=== PATIENT | female | born 1985 | race American Indian/Alaskan Native ===

== ENCOUNTER 2019-02-17 09:00 | Inpatient (IN) | payer MEDICAID ==
[2019-02-17] MEDS ORDERED: ONDANSETRON 4 MG/2 ML INJ IV PRN (10:30)
[2019-02-17] MEDS ORDERED: TERBUTALINE 1 MG/1 ML INJ IVP PRN (10:30)
[2019-02-17] MEDS ORDERED: ePHEDrine SULFATE 50 MG/1 ML INJ IV PRN (10:30)
[2019-02-17] MEDS ORDERED: BUTORPHANOL 2 MG/1 ML INJ IV PRN (10:30)
[2019-02-17] MEDS ORDERED: PROMETHAZINE 25 MG TAB PO PRN (10:30)
[2019-02-17] MEDS ORDERED: MINERAL OIL 30 ML ORAL LIQD PO PRN (10:30)
[2019-02-17] MEDS ORDERED: TERBUTALINE 1 MG/1 ML INJ SUB-Q PRN (10:30)
[2019-02-17] MEDS ORDERED: miSOPROStol 25 MCG TAB VG SCH (10:30)
[2019-02-17] MEDS ORDERED: LIDOCAINE (2%) 20 MG/1 ML VIAL 20 ML MDV INFILTRATI NR (10:30)
[2019-02-17] MEDS ORDERED: NALOXONE 0.4 MG/1 ML INJ IV PRN (10:30)
[2019-02-17] MEDS ORDERED: OXYTOCIN 20 UNIT/1000ML DRIP 20 UNITS/1,000 ML BAG IV SCH (11:00)
[2019-02-17] MEDS ORDERED: OXYTOCIN DRIP 30 UNITS/500 ML BAG IV SCH (11:00)
[2019-02-17] MEDS ORDERED: AMPICILLIN/NS 2 GM/100 ML 2 GM/100 ML BAG IV ONE (11:00)
[2019-02-17] MEDS: OXYTOCIN DRIP 30 UNITS/500 ML BAG IV SCH ×2 (11:28→22:00)
[2019-02-17] MEDS: LACTATED RINGERS 1,000 ML IV SCH ×2 (11:28→16:58)
[2019-02-17 12:00] LABS: Hematocrit 32.3 % (30.3-42.9); Hemoglobin 11.4 gm/dl (10.1-14.3); Mean Corpuscular HGB Conc 35 % (30-34); Mean Corpuscular Volume 88 fl (79-97); Platelet Count 236 K/mm3 (140-440); Red Blood Count 3.69 M/mm3 (3.65-5.03); Red Cell Distribution Width 15.5 % (13.2-15.2)
--- NOTE | 2019-02-17 12:43 | History and Physical Report ---
History of Present Illness Date of examination: 02/17/19 Date of admission: 02/17/19 Chief complaint: Here for induction History of present illness: Pt is a 33 yo at 41.1 weeks EGA who presents for IOL for post-dates gestation. She reports leaking fluid, positive movement, and denies vaginal bleeding. She has received care with [facility]. course has been complicated by HgbAC without FOB testing, glucose intolerance with normal 3hr GTT, and anemia. She is GBS positive. 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 () Family/Genetic History: diabetes, hypertension, stroke, cancer (aunt breast cancer age 49) Social history: no significant social history - Obstetrical History Expected Date of Delivery: 02/09/19 Actual Gestation: 41 Week(s) 1 Day(s) : 3 Para: 0 Hx # Term Pregnancies: 0 Number of Pregnancies: 0 Spontaneous Abortions: 1 Induced : 1 Number of Living Children: 0 Medications and Allergies Allergies Allergy/AdvReac Type Severity Reaction Status Date / Time No Known Allergies Allergy Verified 02/17/19 10:10 Active Meds: Active Medications Butorphanol Tartrate (Stadol) 2 mg IV Q2H PRN PRN Reason: Pain , Severe (7-10) Ephedrine Sulfate (Ephedrine Sulfate) 10 mg IV Q2M PRN PRN Reason: Hypotension Fentanyl (Sublimaze) 100 mcg IV Q2H PRN PRN Reason: Labor Pain Oxytocin/Sodium Chloride (Pitocin/Ns 20 Unit/1000ml Drip) 20 units in 1,000 mls @ 125 mls/hr IV DIRECT DIPIKA Oxytocin/Sodium Chloride (Pitocin/Ns 30 Unit/500ml) 30 units in 500 mls @ 1 mls/hr IV TITR DIPIKA; Protocol Last Titration: 02/17/19 12:32 Dose: 2 milliunits/min, 2 mls/hr Documented by: Oxytocin/Sodium Chloride (Pitocin/Ns 30 Unit/500ml) 30 units in 500 mls @ 2 mls/hr IV TITR DIPIKA; Protocol Lactated Ringer's (Lactated Ringers) 1,000 mls @ 125 mls/hr IV DIRECT DIPIKA Last Admin: 02/17/19 11:28 Dose: 125 mls/hr Documented by: Ampicillin Sodium (Ampicillin/Ns 1 Gm/50 Ml) 1 gm in 50 mls @ 100 mls/hr IV Q4H DIPIKA; Protocol Lidocaine (Xylocaine 2%) 20 ml INFILTRATI ONCE NR Stop: 02/18/19 10:29 Mineral Oil (Mineral Oil) 30 ml PO QHS PRN PRN Reason: Constipation Misoprostol (Cytotec) 25 mcg VG ONCE DIPIKA Stop: 02/17/19 16:00 Naloxone HCl (Naloxone) 0.1 mg IV Q2MIN PRN PRN Reason: Res Rate </= 8 or 02 SAT < 92% Ondansetron HCl (Zofran) 4 mg IV Q8H PRN PRN Reason: Nausea And Vomiting Promethazine HCl (Phenergan) 25 mg PO Q6H PRN PRN Reason: Nausea And Vomiting Terbutaline Sulfate (Brethine) 0.25 mg SUB-Q ONCE PRN PRN Reason: Hyperstimulation/Hypertonicity Terbutaline Sulfate (Brethine) 0.25 mg IVP ONCE PRN PRN Reason: Hyperstimulation/Hypertonicity Review of Systems All systems: negative Genitourinary: vaginal discharge, leakage of fluid, contractions, no vaginal bleeding - Vital Signs Vital signs: Vital Signs Pulse BP 105 H 126/76 02/17/19 09:49 02/17/19 09:49 Temp Pulse Resp BP Pulse Ox 98.0 F 100 H 16 126/76 02/17/19 09:53 02/17/19 09:53 02/17/19 09:53 02/17/19 09:53 - Physical Exam Lungs: Positive: Normal air movement Abdomen: Positive: soft Genitourinary (Female): Positive: normal external genitalia, normal perenium, other (LOF, Nitrazine positive). Negative: perineal/vulvar lesions Vagina: Positive: normal moisture Uterus: Positive: enlarged (gravid) Anus/Rectum: Positive: normal perianal skin Extremities: Positive: normal - Obstetrical FHR: category 1 Uterine Contraction Monitor Mode: External Cervical Dilatation: 1.5 Cervical Effacement Percentage: 80 station: -2 Uterine Contraction Frequency (min): 2-3 Uterine Contraction Duration: 60 Uterine Contraction Pattern: Regular Results Result Diagrams: 02/17/19 11:40 Abnormal lab results 02/17/19 Range/Units 11:40 WBC 18.5 H (4.5-11.0) K/mm3 MCHC 35 H (30-34) % RDW 15.5 H (13.2-15.2) % All other labs normal. Assessment and Plan 33 yo at 41.1 weeks EGA Post-dates gestation GBS positive, membranes ruptured HgbAC Hx anemia Glucose intolerance (normal 3 hr GTT) Admit to L&D for IOL Pain relief as requested Ampicillin prophylaxis Anticipate
[2019-02-17] MEDS: AMPICILLIN/NS 1 GM/50 ML 1 GM/50 ML BAG IV SCH (15:48)
[2019-02-17] MEDS: fentaNYL 100 MCG/2 ML INJ IV PRN ×2 (16:50→22:50)
[2019-02-17] MEDS ORDERED: BICITRA ORAL LIQD 30ML ONE (19:49)
[2019-02-17] MEDS ORDERED: METOCLOPRAMIDE 10 MG/2 ML INJ ONE (19:49)
[2019-02-17] MEDS ORDERED: FAMOTIDINE 20 MG/2 ML INJ IV ONE (19:50)
[2019-02-17] MEDS ORDERED: ceFAZolin/Water 2 GM/20 ML 0 GM/0 ML SYRINGE IV ONE (19:50)
--- NOTE | 2019-02-17 22:46 | Progress Note ---
Assessment and Plan 33 yo at 41.1 weeks EGA Post-dates gestation GBS positive, membranes ruptured HgbAC Hx anemia Glucose intolerance (normal 3 hr GTT) Continue Pitocin induction as tolerated Pain relief as requested Anticipate Subjective - Subjective Date of service: 02/17/19 Principal diagnosis: Active labor Interval history: Called to room for 3-minute FHR deceleration, resolved with position change. Pt is now 6cm dilated and is reporting rectal pressure. AROM of bulging forebag, clear. Continue induction of labor, anticipate . Pt is a 33 yo at 41.1 weeks EGA who presents for IOL for post-dates gestation. She reports leaking fluid, positive movement, and denies vaginal bleeding. She has received care with [facility]. course has been complicated by HgbAC without FOB testing, glucose intolerance with normal 3hr GTT, and anemia. She is GBS positive. Objective - Vital Signs Vital Signs: Vital Signs - 12hr 02/17/19 02/17/19 02/17/19 13:37 13:40 15:45 Temperature 98.8 F 99.6 F Pulse Rate 101 H 101 H Respiratory 18 Rate Blood Pressure 118/76 Blood Pressure 118/76 [Right] O2 Sat by Pulse Oximetry 02/17/19 02/17/19 02/17/19 16:50 19:00 19:01 Temperature 99.8 F H 100.3 F H Pulse Rate 116 H Respiratory 18 18 Rate Blood Pressure 128/84 Blood Pressure 128/84 [Right] O2 Sat by Pulse Oximetry 02/17/19 02/17/19 02/17/19 19:12 19:51 19:56 Temperature Pulse Rate 109 H 117 H 117 H Respiratory Rate Blood Pressure 122/75 Blood Pressure [Right] O2 Sat by Pulse 100 100 Oximetry 02/17/19 02/17/19 02/17/19 20:01 20:06 20:11 Temperature Pulse Rate 112 H 110 H 111 H Respiratory Rate Blood Pressure Blood Pressure [Right] O2 Sat by Pulse 100 100 100 Oximetry 02/17/19 02/17/19 02/17/19 20:16 20:21 20:26 Temperature Pulse Rate 109 H 113 H 111 H Respiratory Rate Blood Pressure Blood Pressure [Right] O2 Sat by Pulse 100 100 100 Oximetry 02/17/19 02/17/1920 20:31 20:36 20:41 Temperature Pulse Rate 108 H 111 H 108 H Respiratory Rate Blood Pressure Blood Pressure [Right] O2 Sat by Pulse 100 100 100 Oximetry 02/17/19 02/17/19 02/17/19 20:46 20:51 20:56 Temperature Pulse Rate 112 H 110 H 110 H Respiratory Rate Blood Pressure Blood Pressure [Right] O2 Sat by Pulse 100 100 100 Oximetry 02/17/19 02/17/19 02/17/19 21:01 21:06 21:11 Temperature Pulse Rate 110 H 110 H 113 H Respiratory Rate Blood Pressure Blood Pressure [Right] O2 Sat by Pulse 100 100 100 Oximetry 02/17/19 02/17/19 02/17/19 21:16 21:21 21:26 Temperature Pulse Rate 108 H 102 H 110 H Respiratory Rate Blood Pressure Blood Pressure [Right] O2 Sat by Pulse 100 100 100 Oximetry 02/17/19 02/17/19 02/17/19 21:31 21:36 21:41 Temperature Pulse Rate 107 H 105 H 108 H Respiratory Rate Blood Pressure Blood Pressure [Right] O2 Sat by Pulse 100 100 100 Oximetry 02/17/19 02/17/19 02/17/19 21:46 21:51 21:56 Temperature Pulse Rate 107 H 108 H 109 H Respiratory Rate Blood Pressure Blood Pressure [Right] O2 Sat by Pulse 100 100 100 Oximetry 02/17/19 02/17/19 02/17/19 22:01 22:06 22:11 Temperature Pulse Rate 108 H 111 H 113 H Respiratory Rate Blood Pressure Blood Pressure [Right] O2 Sat by Pulse 100 100 100 Oximetry 02/17/19 02/17/19 02/17/19 22:16 22:21 22:26 Temperature Pulse Rate 110 H 111 H 112 H Respiratory Rate Blood Pressure Blood Pressure [Right] O2 Sat by Pulse 100 100 100 Oximetry 02/17/19 02/17/19 02/17/19 22:31 22:36 22:41 Temperature Pulse Rate 96 H 107 H 99 H Respiratory Rate Blood Pressure Blood Pressure [Right] O2 Sat by Pulse 100 100 100 Oximetry - Exam FHR: category 2 Uterine Contraction Pattern: Regular Uterine Contraction Intensity: Strong/Firm Extremities: normal - Labs Labs: Abnormal Labs 02/17/19 11:40 WBC 18.5 H MCHC 35 H RDW 15.5 H Laboratory Results - last 24 hr 02/17/19 02/17/19 11:40 11:40 WBC 18.5 H RBC 3.69 Hgb 11.4 Hct 32.3 MCV 88 MCH 31 MCHC 35 H RDW 15.5 H Plt Count 236 Blood Type A POSITIVE Antibody Screen Negative
[2019-02-18] MEDS: fentaNYL 100 MCG/2 ML INJ IV PRN (01:20)
[2019-02-18] MEDS: AMPICILLIN/NS 1 GM/50 ML 1 GM/50 ML BAG IV SCH (02:22)
[2019-02-18] MEDS ORDERED: METHYLERGONOVINE MALEATE 0.2 MG/ML VIAL IM ONE (05:19)
[2019-02-18] MEDS ORDERED: diphenhydrAMINE 25 MG CAP PO PRN (05:38)
[2019-02-18] MEDS ORDERED: ACETAMINOPHEN 325 MG TAB PO PRN (05:38)
[2019-02-18] MEDS ORDERED: PROMETHAZINE 25 MG RECT SUPP PR PRN (05:38)
[2019-02-18] MEDS ORDERED: MAGNESIUM HYDROXIDE (MOM) ORAL LIQD UDC PO PRN (05:38)
[2019-02-18] MEDS ORDERED: LANOLIN/ZINC/DIMETHICONE (LANSINOH) 7 GM TP PRN (05:38)
[2019-02-18] MEDS ORDERED: PROMETHAZINE 25 MG TAB PO PRN (05:38)
[2019-02-18] MEDS ORDERED: WITCH HAZEL/ GLYCERIN PAD TP PRN (05:38)
[2019-02-18] MEDS ORDERED: ONDANSETRON 4 MG/2 ML INJ IV PRN (05:38)
--- NOTE | 2019-02-18 05:38 | Procedure Note ---
OB Delivery Note - Delivery Date of Delivery: 02/18/19 Surgeon: KEYLA SANDERS ([facility]) Estimated blood loss: 500cc - Vaginal Delivery presentation: vertex Delivery position: OA Intrapartum events: PROM->1hr before delivery, extend. tachycardia, mult. late decelerations, uterine atony Delivery induction: oxytocin Delivery augmentation: pitocin Delivery monitor: external FHT, external uterine Route of delivery: Delivery placenta: spontaneous Delivery cord: 3 umbilical vessels Episiotomy: none Delivery laceration: 1st degree Delivery repair: vicryl Anesthesia: local Delivery comments: Excellent maternal effort resulted in of male infant. Head delivered OA. Leg extension and flexion and manual restitution to LOT. Shoulders followed with gentle guidance. Infant to maternal abdomen, stimulated and bulb suction of nares and oropharynx. APGARS 7/8. Delayed cord clamping. Placenta delivered spontaneously and intact. Uterine atony noted, resolved with IV Pitocin, IM Methergine, and fundal massage. No clots expressed. 1st degree perineal laceration repaired under local Lidocaine anesthesia with 3-0 Vicryl. Periurethral abrasion hemostatic and not repaired. Weight 9lb 2.5oz. Mother and infant bonding well. - A at 1 minute: 7 at 5 minutes: 8 Gender: Male
[2019-02-18] MEDS: FERROUS SULFATE 325 MG TAB PO SCH ×2 (13:25→22:00)
[2019-02-18] MEDS: IBUPROFEN 600 MG TAB PO SCH ×2 (13:27→18:50)
[2019-02-18 17:50] LABS: Hematocrit 23.6 % (30.3-42.9); Hemoglobin 8.3 gm/dl (10.1-14.3)
[2019-02-19] MEDS ORDERED: MEASLES, MUMPS & RUBELLA 12,500 UNIT/0.5 ML VACCINE SUB-Q ONE (06:00)
[2019-02-19] MEDS ORDERED: TETANUS,DIPH,PERTUSS(ACELL) VACCINE 0.5 ML SYRINGE IM ONE (06:00)
[2019-02-19] MEDS: IBUPROFEN 600 MG TAB PO SCH ×4 (09:05→18:18)
[2019-02-19] MEDS: PRENATAL VIT27-FE FUMARATE-FOLIC ACID VIT TAB PO SCH (09:44)
[2019-02-19] MEDS: FERROUS SULFATE 325 MG TAB PO SCH ×2 (09:44→23:06)
--- NOTE | 2019-02-19 13:14 | Progress Note ---
Assessment and Plan PPD1 s/p Hemorrhoid- initiate Colace Start pumping breasts Anemia- ferrous sulfate D/c to home on PPD2 Subjective - Subjective Date of service: 02/19/19 Principal diagnosis: s/p Interval history: PPD1 s/p Patient reports: appetite normal, voiding normally, pain well controlled, ambulating normally [place]: in NICU, other (GI tube in place) Objective - Vital Signs Latest vital signs: Vital Signs Temp Pulse Resp BP Pulse Ox 02/19/19 09:05 20 02/19/19 08:09 97.7 F 86 16 100/62 99 02/19/19 02:14 98.4 F 97 H 20 96/55 100 02/18/19 19:50 18 02/18/19 16:42 98.4 F 98 H 18 107/63 100 Intake and Output 02/18/19 02/19/19 02/19/19 23:59 07:59 15:59 Intake Total 240 360 240 Balance 240 360 240 Intake: Oral 240 360 240 Other: Total, Intake Amount 240 120 120 # Voids Void 1 1 1 - Exam Lungs: Present: Normal air movement Abdomen: Present: soft Uterus: Present: firm, fundal height below umbilicus Extremities: Present: normal - Labs Labs: Abnormal lab results 02/18/19 Range/Units 17:32 Hgb 8.3 L D (10.1-14.3) gm/dl Hct 23.6 L D (30.3-42.9) %
--- NOTE | 2019-02-19 13:17 | Discharge Summary ---
Providers - Providers Date of Admission: 02/18/19 05:47 Date of discharge: 02/20/19 Attending physician: SHU MADISON MD Primary care physician: SHU MADISON MD Hospitalization Reason for admission: induction of labor Delivery: Episiotomy: none Laceration: 1st degree complications: uterine atony (EBL 500ml) Discharge diagnosis: IUP at term delivered baby: male Hospital course: Pt presented for IOL ROM for unknown period of time in NICU for abx and GI tube feedings course uncomplicated Condition at discharge: Good Disposition: DC-01 TO HOME OR SELFCARE Plan - Discharge Medications Prescriptions: Docusate Sodium [Colace] 100 mg PO BID PRN 15 Days #30 capsule PRN Reason: Constipation Ferrous Sulfate [Ferrous Sulfate 324 MG] 324 mg PO BID #60 tablet.dr Ibuprofen [Motrin] 600 mg PO Q6H PRN #60 tablet PRN Reason: Pain - Provider Discharge Summary Activity: routine, no sex for 6 weeks, no heavy lifting 4 weeks, no strenuous exercise Diet: routine Instructions: routine Additional instructions: [] Smoking cessation referral if applicable(refer to patient education folder for contact #) [] Refer to [facility] Booklet Call your doctor immediately for: * Fever > 100.5 * Heavy vaginal bleeding ( >1 pad per hour) * Severe persistent headache * Shortness of breath * Reddened, hot, painful area to leg or breast * Drainage or odor from incision. * Keep incision clean and dry at all times and follow doctor's instructions regarding bathing/showering - Follow up plan Follow up: KEYLA SANDERS CNM [Advanced Practice Nurse] - 14 Days (Dio call [facility] to schedule appointment.)
[2019-02-19] MEDS: DOCUSATE SODIUM 100 MG CAP PO SCH (18:18)
[2019-02-20] MEDS: IBUPROFEN 600 MG TAB PO SCH ×2 (06:36→13:06)
[2019-02-20 12:52] VITALS: BP 109/76
[2019-02-20] MEDS: PRENATAL VIT27-FE FUMARATE-FOLIC ACID VIT TAB PO SCH (13:07)
[2019-02-20] MEDS: FERROUS SULFATE 325 MG TAB PO SCH (13:07)
[2019-02-20] MEDS: DOCUSATE SODIUM 100 MG CAP PO SCH (13:07)
== END 2019-02-20 16:10 | disposition home or self-care (01) | DRG 775 ==
LOC: TRG 09:00 → LD 09:01 → TRG 02-18 05:46 → LD 02-18 05:47 → OB 02-18 10:02
PROVIDERS: ADMIT Obstetrics & Gynecology; ATTEND Obstetrics & Gynecology
PROC: 10E0XZZ Delivery of Products of Conception, External Approach (ICD-10-PCS; principal; 2019-02-18)
PROC: 3E033VJ Introduction of Other Hormone into Peripheral Vein, Percutaneous Approach (ICD-10-PCS; 2019-02-18)
PROC: 0HQ9XZZ Repair Perineum Skin, External Approach (ICD-10-PCS; 2019-02-18)
PROC: 3E0234Z Introduction of Serum, Toxoid and Vaccine into Muscle, Percutaneous Approach (ICD-10-PCS; 2019-02-19)
DX: O48.0 Post-term pregnancy (principal); O99.824 Streptococcus B carrier state complicating childbirth; O42.92 Full-term premature rupture of membranes, unspecified as to length of time between rupture and onset of labor; O76 Abnormality in fetal heart rate and rhythm complicating labor and delivery; O62.2 Other uterine inertia; O70.0 First degree perineal laceration during delivery; Z83.3 Family history of diabetes mellitus; Z3A.41 41 weeks gestation of pregnancy; Z37.0 Single live birth; Z82.49 Family history of ischemic heart disease and other diseases of the circulatory system; Z80.3 Family history of malignant neoplasm of breast; O99.02 Anemia complicating childbirth; D64.9 Anemia, unspecified; Z23 Encounter for immunization
CPT/HCPCS: 36415; 85014; 85018; 85027; 86850; 86900; 86901; 90707; 96360; 96365; G0378; A6250; J0290; J0690; J2210; J2590; J2765; J3010; J7120; Q0169